=== PATIENT | female | born 1995 | race Caucasian/White ===

== ENCOUNTER 2017-12-30 12:09 | Emergency (ER) | payer OTHER, SELFPAY ==
[2017-12-30 13:17] LABS: Urine Blood TRACE (NEG); Urine Glucose NEGATIVE (NEG); Urine Protein 2+ (NEG); Urine pH 5.5 (5.0-7.0)
--- NOTE | 2017-12-30 13:21 | RAD REPORT ---
EXAM DESCRIPTION: CT - Head Brain Wo Cont - 12/30/2017 1:09 pm CLINICAL HISTORY: Syncope COMPARISON: None. TECHNIQUE: Computed axial tomography of the head was obtained. IV contrast was not requested. All CT scans are performed using dose optimization technique as appropriate and may include automated exposure control or mA/KV adjustment according to patient size. FINDINGS: Areas of blood are present within the parenchyma of the right frontal and right temporal l obes. The areas are patchy and vary in size from a few millimeters to 1.4 centimeters. Surrounding ed geovani is seen. Shift of the midline structures is not noted. The ventricles are normal in caliber. No extra-axial fluid collection is noted. Fluid within the sinuses/ mastoids is not seen. IMPRESSION: Right frontal and right temporal bleed. This may be secondary to trauma or ruptured aneu rysm. The exam was discussed with Dr. Viera in the emergency room 1:08 p.m. December 30, 2017
[2017-12-30] MEDS ORDERED: ONDANSETRON 4 MG/2 ML VIAL ONE (13:24)
[2017-12-30 13:38] LABS: Absolute Lymphocytes (CBC) 1.4 K/uL (0.7-4.9); Absolute Monocytes 1.3 K/uL (0.1-1.3); Absolute Neutrophil 6.9 K/uL (1.8-8.0); Basophils % 0.5 % (0-1.3); Eosinophils % 0.3 % (0-4.4); Hematocrit 42.7 % (36.0-45.0); Lymphocytes % 14.2 % (15.3-44.8); MCV 102.2 fL (80-100); MPV 10.9 fL (7.6-11.3); Monocytes % 13.2 % (3.3-12.3); RBC Red Blood Cell Count 4.18 M/uL (3.86-4.86)
--- NOTE | 2017-12-30 13:44 | ER ---
Nurse's Notes [facility] Name: Vanessa Torres Age: 22 yrs Sex: Female : 1995 Arrival Date: 12/30/2017 Time: 12:13 Bed 4 Private MD: Diagnosis: Intracerebral Hemorrhage Presentation: 12/30 12:31 Presenting complaint: Patient states: Nausea and headache after fall from standing 2 hb days ago. Bystander reports pt was unconscious approx 1 minute. Vomit x 1 yesterday. Transition of care: patient was not received from another setting of care. Onset of symptoms was December 28, 2017. Care prior to arrival: None. 12:31 Method Of Arrival: Ambulatory hb 12:31 Acuity: ELADIA 3 hb 13:35 Initial Sepsis Screen: Does the patient meet any 2 criteria? No. Patient's initial tw2 sepsis screen is negative. Does the patient have a suspected source of infection? No. Patient's initial sepsis screen is negative. Historical: - Allergies: 12:33 No Known Allergies; hb - Home Meds: 12:33 omeprazole Oral [Active]; hb - PMHx: 12:33 gastritis; hb - PSHx: 12:33 None; hb - Immunization history:: Adult Immunizations up to date. - Social history:: Smoking status: Patient uses tobacco products, smokes one-half pack cigarettes per day. Screenin:36 Abuse screen: Denies threats or abuse. Denies injuries from another. Nutritional iw screening: No deficits noted. Tuberculosis screening: No symptoms or risk factors identified. Fall Risk IV access (20 points). Assessment: 12:45 General: Appears in no apparent distress. Behavior is calm, cooperative. iw 12:45 Pain:. Neuro: Level of Consciousness is awake, alert, obeys commands, Oriented to iw person, place, time, situation, Moves all extremities. Full function. Neuro: Reports dizziness, headache photophobia. Cardiovascular: Patient's skin is warm and dry. Respiratory: Respiratory effort is even, unlabored, Respiratory pattern is regular, symmetrical. Derm: Skin is pink, warm \T\ dry. normal. Musculoskeletal: Range of motion: intact in all extremities. 13:33 General: Appears in no apparent distress. comfortable, slender, Behavior is calm, tw2 cooperative, appropriate for age. Pain: Denies pain. Neuro: Level of Consciousness is awake, alert, obeys commands, Oriented to person, place, time, situation. Cardiovascular: Denies chest pain, shortness of breath, Heart tones S1 S2 Capillary refill < 3 seconds Patient's skin is warm and dry. Respiratory: Airway is patent Respiratory effort is even, unlabored, Respiratory pattern is regular, symmetrical, Breath sounds are clear bilaterally. GI: Abdomen is flat, Bowel sounds present X 4 quads. Reports nausea. : No signs and/or symptoms were reported regarding the genitourinary system. EENT: No signs and/or symptoms were reported regarding the EENT system. Derm: No signs and/or symptoms reported regarding the dermatologic system. 14:11 Reassessment: Report called to DANIEL Perez. iw 14:47 Reassessment: Patient appears in no apparent distress at this time. No changes from tw2 previously documented assessment. Patient and/or family updated on plan of care and expected duration. Pain level reassessed. Patient is alert, oriented x 3, equal unlabored respirations, skin warm/dry/pink. Vital Signs: 12:32 BP 126 / 88; Pulse 77; Resp 16; Temp 97.9; Pulse Ox 100% on R/A; Weight 46.72 kg; hb Height 5 ft. 5 in. (165.10 cm); Pain 7/10; 13:26 BP 120 / 77; Pulse 68; Resp 16; Pulse Ox 98% on R/A; mw2 14:46 BP 114 / 75; Pulse 58; Resp 16; Pulse Ox 98% on R/A; tw2 12:32 Body Mass Index 17.14 (46.72 kg, 165.10 cm) hb Fatimah Coma Score: 13:39 Eye Response: spontaneous(4). Verbal Response: oriented(5). Motor Response: obeys jr8 commands(6). Total: 15. ED Course: 12:13 Patient arrived in ED. sb2 12:32 Triage completed. hb 12:33 Arm band placed on right wrist. hb 12:43 Matti Alves PA is PHCP. jr8 12:43 Jim Viera MD is Attending Physician. jr8 12:48 El Hernandez LVN is Primary Nurse. em 13:[address] via wheelchair. jg1 13:09 CT Head Brain wo Cont In Process Unspecified. EDMS 13:25 Initial lab(s) drawn, by me, sent to lab. Inserted saline lock: 20 gauge in left Blood iw collected. 13:30 Primary Nurse role handed off by El Hernandez LVN iw 13:30 Beckie Hair, RN is Primary Nurse. iw 13:35 Placed in gown. Bed in low position. Side rails up X2. Adult w/ patient. Cardiac tw2 monitor on. Pulse ox on. NIBP on. Warm blanket given. 14:48 No provider procedures requiring assistance completed. Patient transferred, IV remains tw2 in place. Administered Medications: 13:30 Drug: Zofran 4 mg Route: IVP; Site: left antecubital; tw2 14:47 Follow up: Response: No adverse reaction; Nausea is decreased tw2 Outcome: 13:43 ER care complete, transfer ordered by MD. joe 14:49 Transferred by ground EMS to [facility], Transfer form completed. X-rays sent iw w/ patient. 14:49 Condition: good 14:49 Discharge instructions given to patient, family, Instructed on the need for transfer. 14:50 Patient left the ED. tw2 Signatures: Dispatcher [employer] EDMS Logan Jessie jg1 El Hernandez LVN LVN em Beckie Hair, RN RN Matti Alves PA PA jr8 Sammie Pinedo RN DANIEL Yany Landis RN RN tw2 Davina Ochoa sb2 Hay Sanchez mw2 Corrections: (The following items were deleted from the chart) 13:34 12:34 General: Appears in no apparent distress. comfortable, iw iw
--- NOTE | 2017-12-30 13:44 | EDPHYS ---
Physician Documentation [facility] Name: Vanessa Torres Age: 22 yrs Sex: Female : 1995 Arrival Date: 12/30/2017 Time: 12:13 Bed 4 Private MD: ED Physician Jim Viera HPI: 12/30 13:39 This 22 yrs old Female presents to ER via Ambulatory with complaints of Head jr8 Injury With LOC-Adult. 13:39 The patient or guardian reports pain, tenderness. The complaints affect the right jr8 occipital area. Context of injury: The problem was sustained outdoors, resulted from a fall, from a standing position. Onset: The symptoms/episode began/occurred acutely, 36 hour(s) ago. Associated signs and symptoms: Loss of consciousness: This patient experience a loss of consciousness, that was brief, Pertinent positives: loss of conciousness, patient admits to or smells of alcohol consumption, headache, nausea. Severity of symptoms: At their worst the symptoms were moderate, in the emergency department the symptoms are unchanged. The patient has not experienced similar symptoms in the past. The patient has not recently seen a physician. Patient stated that she had a couple of beers with friends while outside. Stated that she became nauseated and was trying to find somewhere to vomit. Did not make and fell hitting the back of her head. + LOC. Since then has been sleeping a lot, nauseated, dizzy, headache, and photophobic . Historical: - Allergies: 12:33 No Known Allergies; hb - Home Meds: 12:33 omeprazole Oral [Active]; hb - PMHx: 12:33 gastritis; hb - PSHx: 12:33 None; hb - Immunization history:: Adult Immunizations up to date. - Social history:: Smoking status: Patient uses tobacco products, smokes one-half pack cigarettes per day. ROS: 13:39 Eyes: Negative for injury, pain, redness, and discharge, ENT: Negative for injury, jr8 pain, and discharge, Neck: Negative for injury, pain, and swelling, Cardiovascular: Negative for chest pain, palpitations, and edema, Respiratory: Negative for shortness of breath, cough, wheezing, and pleuritic chest pain, Back: Negative for injury and pain, MS/Extremity: Negative for injury and deformity, Skin: Negative for injury, rash, and discoloration. 13:39 Abdomen/GI: Positive for nausea, Negative for abdominal pain, vomiting, diarrhea, constipation, abdominal cramps, abdominal distension, anorexia, dysphagia, hematemesis, black/tarry stool, rectal pain, rectal bleeding, bowel incontinence, flatulence. 13:39 Neuro: Positive for dizziness, headache, loss of consciousness. Exam: 13:39 Eyes: Pupils equal round and reactive to light, extra-ocular motions intact. Lids and jr8 lashes normal. Conjunctiva and sclera are non-icteric and not injected. Cornea within normal limits. Periorbital areas with no swelling, redness, or edema. ENT: Nares patent. No nasal discharge, no septal abnormalities noted. Tympanic membranes are normal and external auditory canals are clear. Oropharynx with no redness, swelling, or masses, exudates, or evidence of obstruction, uvula midline. Mucous membranes moist. Neck: Trachea midline, no thyromegaly or masses palpated, and no cervical lymphadenopathy. Supple, full range of motion without nuchal rigidity, or vertebral point tenderness. No Meningismus. Cardiovascular: Regular rate and rhythm with a normal S1 and S2. No gallops, murmurs, or rubs. Normal PMI, no JVD. No pulse deficits. Respiratory: Lungs have equal breath sounds bilaterally, clear to auscultation and percussion. No rales, rhonchi or wheezes noted. No increased work of breathing, no retractions or nasal flaring. Abdomen/GI: Soft, non-tender, with normal bowel sounds. No distension or tympany. No guarding or rebound. No evidence of tenderness throughout. Back: No spinal tenderness. No costovertebral tenderness. Full range of motion. Skin: Warm, dry with normal turgor. Normal color with no rashes, no lesions, and no evidence of cellulitis. MS/ Extremity: Pulses equal, no cyanosis. Neurovascular intact. Full, normal range of motion. Neuro: Awake and alert, GCS 15, oriented to person, place, time, and situation. Cranial nerves II-XII grossly intact. Motor strength 5/5 in all extremities. Sensory grossly intact. Cerebellar exam normal. Normal gait. Vital Signs: 12:32 BP 126 / 88; Pulse 77; Resp 16; Temp 97.9; Pulse Ox 100% on R/A; Weight 46.72 kg; hb Height 5 ft. 5 in. (165.10 cm); Pain 7/10; 13:26 BP 120 / 77; Pulse 68; Resp 16; Pulse Ox 98% on R/A; mw2 14:46 BP 114 / 75; Pulse 58; Resp 16; Pulse Ox 98% on R/A; tw2 12:32 Body Mass Index 17.14 (46.72 kg, 165.10 cm) hb [place] Coma Score: 13:39 Eye Response: spontaneous(4). Verbal Response: oriented(5). Motor Response: obeys jr8 commands(6). Total: 15. MDM: 12:43 Patient medically screened. jr8 13:42 Data reviewed: vital signs, nurses notes, radiologic studies, CT scan. Data jr8 interpreted: Pulse oximetry: on room air is 98 %. Interpretation: normal. Counseling: I had a detailed discussion with the patient and/or guardian regarding: the historical points, exam findings, and any diagnostic results supporting the discharge/admit diagnosis, lab results, radiology results, the need to transfer to another facility, for higher level of care, [facility] does not immediately have the required specialist. ED course: Dr. Izaguirre consulted and accepted patient for transfer for neurosurgical evaluation . 12/30 13:08 Order name: Urine Dipstick--Ancillary (enter results); Complete Time: 13:20 bd 12/30 13:08 Order name: Urine --Ancillary (enter results); Complete Time: 13:20 bd 12/30 13:17 Order name: CBC with Diff; Complete Time: 13:44 jr8 12/30 13:17 Order name: Basic Metabolic Panel; Complete Time: 14:02 jr8 12/30 13:17 Order name: Protime (+inr); Complete Time: 14:02 jr8 12/30 13:17 Order name: Ptt, Activated; Complete Time: 14:02 jr8 12/30 12:49 Order name: CT Head Brain wo Cont; Complete Time: 13:22 em 12/30 13:17 Order name: IV; Complete Time: 13:32 jr8 Administered Medications: 13:30 Drug: Zofran 4 mg Route: IVP; Site: left antecubital; tw2 14:47 Follow up: Response: No adverse reaction; Nausea is decreased tw2 Disposition: 12/30/17 13:43 Transfer ordered to [facility]. Diagnosis is Intracerebral Hemorrhage . - Reason for transfer: Higher level of care. - Accepting physician is Dr. Davis. - Condition is Stable. - Problem is new. - Symptoms are unchanged. Addendum: 01/14/2018 19:44 Co-signature as Attending Physician, Jim Viera MD I agree with the assessment and k dr plan of care. Signatures: Dispatcher [employer] EDHI Jim Viera MD MD [facility] Matti Alves PA PA jr8 Sammie Pinedo, RN RN Yany Landis RN RN tw2 Corrections: (The following items were deleted from the chart) 12/30 14:50 13:43 12/30/2017 13:43 Transfer ordered to [facility]. tw2 Diagnosis is Intracerebral Hemorrhage . Reason for transfer: Higher level of care. Accepting physician is Dr. Davis. Condition is Stable. Problem is new. Symptoms are unchanged. jr8
[2017-12-30 13:45] LABS: Protime INR 1.08
[2017-12-30 13:47] LABS: Bicarbonate 27 mEq/L (21-31); Glucose Level 116 mg/dL (65-120); Potassium 3.7 mEq/L (3.6-5.0); Sodium Level 130 mEq/L (135-145)
[2017-12-30 13:48] LABS: BUN Blood Urea Nitrogen 18 mg/dL (6-20)
== END 2017-12-30 14:50 | disposition short-term general hospital (02) ==
LOC: ER 12:09
DX: S06.360A Traumatic hemorrhage of cerebrum, unspecified, without loss of consciousness, initial encounter (principal); W18.39XA Other fall on same level, initial encounter; Y93.89 Activity, other specified; Y92.89 Other specified places as the place of occurrence of the external cause; F17.210 Nicotine dependence, cigarettes, uncomplicated
CPT/HCPCS: 36415; 70450; 80048; 81003; 81025; 85025; 85610; 85730; 96374; 99285; J2405